=== PATIENT | male | born 1935 ===

== ENCOUNTER → 2016-11-18 | Outpatient (REF) | payer MEDICARE ==
[2016-11-18 12:24] LABS: TOTAL PROTEIN 7.4 GM/DL (6.4-8.2)
[2016-11-18 12:36] LABS: VITAMIN B12 LEVEL 629 PG/ML (247-911)
[2016-11-20 13:01] LABS: ALBUMIN 4.35 GM/DL (3.29-5.55); ALBUMIN % 58.8 % (55.8-66.1); GAMMA GLOBULIN % 16.4 % (11.1-18.8)
== END ==
LOC: M LAB REF 11:48
PROVIDERS: ATTEND Internal Medicine
DX: D51.9 Vitamin B12 deficiency anemia, unspecified (principal); G60.9 Hereditary and idiopathic neuropathy, unspecified